=== PATIENT | female | born 1985 | race African-American/Black ===

== ENCOUNTER 2017-04-20 10:47 | Emergency (ER) | payer OTHER ==
[2017-04-20 10:54] VITALS: BP 122/72; PULSE 105; TEMP 98; BMI 27.4
--- NOTE | 2017-04-20 11:58 | PDOC ---
History of Present Illness - General Chief Complaint: Sore Throat Stated Complaint: THROAT PAIN Time Seen by Provider: 04/20/17 11:31 History Source: Patient Exam Limitations: No Limitations - History of Present Illness Initial Comments: 04/20/17 11:58 31 yr female with c/o sore throat for 3 days no fever no cough no abd pain no sick contacts, pt is able to swallow secretions no drooling Severity: mild Past History - Past Medical History Allergies/Adverse Reactions: Allergies Allergy/AdvReac Type Severity Reaction Status Date / Time No Known Allergies Allergy Verified 08/23/14 09:26 Home Medications: Ambulatory Orders NK [No Known Home Medication] 08/23/14 COPD: No DVT: No - Immunization History Immunization Up to Date: Yes - Suicide/Smoking/Psychosocial Hx Smoking History: Never smoked Have you smoked in the past 12 months: No Information on smoking cessation initiated: No Hx Alcohol Use: No Drug/Substance Use Hx: No Substance Use Type: None *Physical Exam - Vital Signs Last Vital Signs Temp Pulse Resp BP Pulse Ox 98.0 F 105 H 16 122/72 98 04/20/17 10:52 04/20/17 10:52 04/20/17 10:52 04/20/17 10:52 04/20/17 10:52 - Physical Exam General Appearance: Yes: Nourished, Appropriately Dressed HEENT: positive: EOMI, PALLAVI, TMs Normal, Pharyngeal Erythema Neck: positive: Supple, Lymphadenopathy (L) Respiratory/Chest: positive: Lungs Clear, Normal Breath Sounds Cardiovascular: positive: Regular Rhythm, Regular Rate Gastrointestinal/Abdominal: positive: Normal Bowel Sounds, Soft Musculoskeletal: positive: Normal Inspection Extremity: positive: Normal Capillary Refill, Normal Inspection, Normal Range of Motion Integumentary: positive: Normal Color, Dry, Warm Neurologic: positive: heat reader II-XII NML intact, Fully Oriented, Alert, Normal Mood/ Affect, Normal Response, Motor Strength 5/5 Medical Decision Making - Medical Decision Making 04/20/17 12:10 rapid strep sent *DC/Admit/Observation/Transfer Diagnosis at time of Disposition: Pharyngitis, acute Qualifiers: Pharyngitis/tonsillitis etiology: unspecified etiology Qualified Code(s): J02.9 - Acute pharyngitis, unspecified - Discharge Dispostion Disposition: HOME Condition at time of disposition: Good - Referrals Referrals: Ross Oleary [Primary Care Provider] - - Patient Instructions Additional Instructions: drink pleanty of fluids to drink gargle with salt water 4-5 a day take ibuprofen 600mg every 8hrs as needed for pain or fever - Post Discharge Activity
== END 2017-04-20 12:57 | disposition home or self-care (01) ==
LOC: JERFT 10:47
DX: J02.9 Acute pharyngitis, unspecified (principal)
CPT/HCPCS: 87070; 87430; 99281-25

== ENCOUNTER 2018-08-15 11:25 | Emergency (ER) | payer OTHER ==
[2018-08-15 11:33] VITALS: BP 109/76; PULSE 89; TEMP 98.3; BMI 24.7
[2018-08-15] MEDS ORDERED: ONDANSETRON 4 MG/2 ML VIAL IVPUSH PRN (12:11)
[2018-08-15] MEDS ORDERED: ONDANSETRON 4 MG/2 ML VIAL ONE (12:18)
[2018-08-15] MEDS ORDERED: SODIUM CHLORIDE 1,000 ML IV STA (12:19)
[2018-08-15 12:20] LABS: HEMATOCRIT 41.7 % (32.4-45.2); MCH 28.7 pg (25.7-33.7); MCHC 33.5 g/dl (32.0-36.0); MEAN CELL VOLUME 85.6 fl (80-96); MEAN PLT VOLUME 9.1 fl (7.5-11.1); PLATELET COUNT 305 K/MM3 (134-434); RBC 4.87 M/mm3 (3.60-5.2); RDW 14.3 % (11.6-15.6)
[2018-08-15] MEDS ORDERED: KETOROLAC TROMETHAMINE 30 MG/1 ML VIAL IVPUSH ONE (12:32)
[2018-08-15 12:54] LABS: ALBUMIN 3.8 g/dl (3.4-5.0); BILIRUBIN,TOTAL 0.6 mg/dL (0.2-1); BLOOD UREA NITROGEN 10.7 mg/dL (7-18); CALCIUM 9.2 mg/dL (8.5-10.1); POTASSIUM 4.5 mmol/L (3.5-5.1); TOT PROT 7.8 g/dl (6.4-8.2)
--- NOTE | 2018-08-15 13:05 | PDOC ---
*Physical Exam - Vital Signs Last Vital Signs Temp Pulse Resp BP Pulse Ox 98.3 F 89 16 109/76 97 08/15/18 11:31 08/15/18 11:31 08/15/18 11:31 08/15/18 11:31 08/15/18 11:31 ED Treatment Course - LABORATORY CBC & Chemistry Diagram: 08/15/18 12:15 08/15/18 12:15 - ADDITIONAL ORDERS Additional order review: Laboratory Results 08/15/18 08/15/18 12:15 12:15 Sodium 136 Potassium 4.5 Chloride 107 Carbon Dioxide 24 Anion Gap 5 L BUN 10.7 Creatinine 1.0 Est GFR (CKD-EPI)AfAm 86.94 Est GFR (CKD-EPI)NonAf 75.01 Random Glucose 75 Calcium 9.2 Total Bilirubin 0.6 AST 42 H ALT 24 Alkaline Phosphatase 71 Total Protein 7.8 Albumin 3.8 Lipase 152 Urine HCG, Qual Negative 08/15/18 12:15 RBC 4.87 MCV 85.6 MCHC 33.5 RDW 14.3 MPV 9.1 Medical Decision Making - Medical Decision Making 08/15/18 13:05 Ms Tafoya is a 32 yo F h/o nausea, vomiting, diarrhea with epigastric pain since Wednesday. Pt seen by Midlevel Provider under my direct supervision Ancillary studies reviewed I agree with plan as outlined by Midlevel Provider 08/15/18 13:35 08/15/18 13:36 *DC/Admit/Observation/Transfer Diagnosis at time of Disposition: Nausea vomiting and diarrhea - Discharge Dispostion Disposition: HOME Condition at time of disposition: Good - Prescriptions Prescriptions: Ondansetron HCl [Zofran] 4 mg PO TID PRN #12 tablet PRN Reason: Nausea And/Or Vomiting - Referrals Referrals: Ross Oleary [Primary Care Provider] - - Patient Instructions Printed Discharge Instructions: DI for Viral Gastroenteritis -- Adult, Nausea and Vomiting-Adult Additional Instructions: Eat bland food for the next 48 hours then may advance as tolerated. Take Zofran as needed for nausea. If symptoms worsen despite above recommendations please return to ED. Otherwise follow up with her primary care physician. - Post Discharge Activity Forms/Work/School Notes: Back to Work
[2018-08-15] MEDS ORDERED: KETOROLAC TROMETHAMINE 30 MG/1 ML VIAL ONE (13:18)
--- NOTE | 2018-08-15 13:19 | PDOC ---
History of Present Illness - General Chief Complaint: Vomiting/Diarrhea Stated Complaint: ABD. PAIN Time Seen by Provider: 08/15/18 11:51 History Source: Patient Exam Limitations: No Limitations - History of Present Illness Travel History: No Initial Comments: 08/15/18 13:21 32 y/o female presents to ED with complaints of nausea vomiting diarrhea since Wednesday night. Patient also complaining of generalized abdominal cramping without fever, chills, dysuria, back pain, rash, recent travel recent illness. Patient does state has had a lot of stress recently and has not been eating her normal foods Timing/Duration: reports: intermittent Quality: reports: mild, cramping Abdominal Pain Onset Location: reports: epigastric, generalized abdomen Pain Radiation: reports: no radiation Activities at Onset: reports: none Aggravating Factors: improves with: None Alleviating Factors: improves with: None Past History - Travel Traveled outside of the country in the last 30 days: No Close contact w/someone who was outside of country & ill: No - Past Medical History Allergies/Adverse Reactions: Allergies Allergy/AdvReac Type Severity Reaction Status Date / Time No Known Allergies Allergy Verified 08/15/18 11:34 Home Medications: Ambulatory Orders Ondansetron HCl [Zofran] 4 mg PO TID PRN #12 tablet 08/15/18 COPD: No DVT: No - Immunization History Immunization Up to Date: Yes - Suicide/Smoking/Psychosocial Hx Smoking History: Never smoked Have you smoked in the past 12 months: No Hx Alcohol Use: Yes (socially) Drug/Substance Use Hx: No Substance Use Type: None Patient Lives Alone: No Lives with/in: spouse/SO Review of Systems - Review of Systems Able to Perform ROS?: Yes Constitutional: No: Symptoms Reported HEENTM: No: Symptoms Reported Respiratory: No: Symptoms reported Cardiac (ROS): No: Symptoms Reported ABD/GI: Yes: Diarrhea, Nausea, Vomiting, Abdominal cramping : No: Symptoms Reported Musculoskeletal: No: Symptoms Reported Integumentary: No: Symptoms Reported Neurological: No: Symptoms reported *Physical Exam - Vital Signs Last Vital Signs Temp Pulse Resp BP Pulse Ox 98.3 F 89 16 109/76 97 08/15/18 11:31 08/15/18 11:31 08/15/18 11:31 08/15/18 11:31 08/15/18 11:31 - Physical Exam General Appearance: Yes: Nourished, Appropriately Dressed. No: Apparent Distress Neck: positive: Supple Respiratory/Chest: positive: Lungs Clear, Normal Breath Sounds. negative: Respiratory Distress, Accessory Muscle Use Cardiovascular: positive: Regular Rhythm, Regular Rate. negative: Murmur Gastrointestinal/Abdominal: positive: Normal Bowel Sounds, Soft, Tenderness ( epigastric, mild periumbilical) Extremity: positive: Normal Inspection Integumentary: positive: Normal Color, Warm, Moist Neurologic: positive: Motor Strength 5/5 (ambulatory) ED Treatment Course - LABORATORY CBC & Chemistry Diagram: 08/15/18 12:15 08/15/18 12:15 - ADDITIONAL ORDERS Additional order review: Laboratory Results 08/15/18 12:15 Urine HCG, Qual Negative 08/15/18 12:15 RBC 4.87 MCV 85.6 MCHC 33.5 RDW 14.3 MPV 9.1 Medical Decision Making - Medical Decision Making 08/15/18 13:00 CC: nausea vomiting diarrhea with epigastric pain since Wednesday intermittently. Exam: Epigastric tenderness on exam otherwise vital signs stable Plan: Likely gastroenteritis Zofran IV fluids Toradol and GI cocktail ordered along with labs and urine 08/15/18 13:28 Laboratory Tests 08/15/18 08/15/18 08/15/18 12:15 12:15 12:15 WBC 11.0 H Hgb 14.0 Hct 41.7 Sodium 136 Potassium 4.5 Chloride 107 Carbon Dioxide 24 Anion Gap 5 L BUN 10.7 Creatinine 1.0 Random Glucose 75 Calcium 9.2 Total Bilirubin 0.6 AST 42 H ALT 24 Alkaline Phosphatase 71 Total Protein 7.8 Albumin 3.8 Lipase 152 Urine HCG, Qual Negative Will dc home with zofran *DC/Admit/Observation/Transfer Diagnosis at time of Disposition: Nausea vomiting and diarrhea - Discharge Dispostion Disposition: HOME Condition at time of disposition: Good - Referrals - Patient Instructions Printed Discharge Instructions: Nausea and Vomiting-Adult, DI for Viral Gastroenteritis -- Adult Additional Instructions: Eat bland food for the next 48 hours then may advance as tolerated. Take Zofran as needed for nausea. If symptoms worsen despite above recommendations please return to ED. Otherwise follow up with her primary care physician. - Post Discharge Activity Forms/Work/School Notes: Back to Work
== END 2018-08-15 13:43 | disposition home or self-care (01) ==
LOC: JER 11:25
PROC: 3E0337Z Introduction of Electrolytic and Water Balance Substance into Peripheral Vein, Percutaneous Approach (ICD-10-PCS; principal; 2018-08-15)
PROC: 3E033GC Introduction of Other Therapeutic Substance into Peripheral Vein, Percutaneous Approach (ICD-10-PCS; 2018-08-15)
PROC: 3E0333Z Introduction of Anti-inflammatory into Peripheral Vein, Percutaneous Approach (ICD-10-PCS; 2018-08-15)
DX: A08.4 Viral intestinal infection, unspecified (principal); B97.89 Other viral agents as the cause of diseases classified elsewhere
CPT/HCPCS: 36415; 80053; 83690; 84703; 85027; 99282-25; J7030